=== PATIENT | female | born 1945 | race Caucasian/White ===

== ENCOUNTER 2019-03-05 14:03 | Emergency (ER) | payer MEDICARE ==
[~2019-03-05] VITALS: Ht 170.2 cm; Wt 117.8 kg
--- NOTE | 2019-03-05 14:30 | NUR ---
THIS IS A 73 YO FEMALE BIB [facility] FOR [facility] AFTER TRIPPING OVER CANE AND HITTING HEAD ON COUNTER. PER [facility], NO LOC, [facility] 15, A&OX4, 3 INCH LACERATION TO RIGHT ANTERIOR SKULL. DENIES USE OF BLOOD THINNERS, DENIES ANY MEDICAL HX. LACERATION BANDAGED BY [facility], BLEEDING CONTROLLED AT THIS TIME. PATIENT GCS 15, A&OX4 IN [facility] ED. PLACED ON 2L NC DUE TO SPO2 AT 88%, PATIENT STATES SHE HAS HAD A STUFFY NOSE AND COLD SYMTOMS THIS WEEK. SPO2 NOW AT 95%, CYCLE BP Q1HR. CALL LIGHT IN REACH, DENIES NEEDS AT THIS TIME.
[2019-03-05] MEDS ORDERED: DIPH,PERTUSS(ACELL),TET VAC/PF 0.5 ML IM-VACC ONE ×2 (14:51→15:00)
[2019-03-05] MEDS ORDERED: LIDOCAINE 1%-EPI 1:100K, 20ML ONE (14:52)
[2019-03-05] MEDS ORDERED: LIDOCAINE 1%-EPI 1:100K, 20ML SQ ONE (15:00)
--- NOTE | 2019-03-05 15:00 | NUR ---
INCREASE OF BLEEDING NOTED, WITH POOLING AROUND HEAD. WILLEM LOTT CALLED TO ROOM
--- NOTE | 2019-03-05 15:29 | NUR ---
LACERATION CLEANED AND IRRIGATED. WILLEM LOTT INJECTED LIDOCAINE WITH EPI TO CONTROL BLEEDING. PLACED 22 [address] ACROSS LACERATION. ED TECHS CONTINUING TO CLEANSE AND CLEAN LACERATION AND SURROUNDING TISSUE.
[2019-03-05] MEDS ORDERED: SODIUM CHLORIDE 0.9% 1,000ML IVBOLUS ONE (15:30)
--- NOTE | 2019-03-05 15:30 | NUR ---
LINENS AND BED CHANGED FOR PATIENT TO GO TO CT
[2019-03-05 15:59] LABS: BASOPHILS # (AUTO) 0.06 x10^3/uL (0-0.1); BASOPHILS % (AUTO) 1 % (0-1); EOSINOPHILS # (AUTO) 0.14 x10^3/uL (0-0.4); EOSINOPHILS % (AUTO) 1 % (1-7); LYMPHOCYTES # (AUTO) 2.16 x10^3/uL (1-3.4); LYMPHOCYTES % (AUTO) 20 % (22-44); MD NO; MEAN CORPUSCULAR HEMOGLOBIN 32.8 pg (27.0-34.8); MEAN CORPUSCULAR HGB CONC 33.3 g/dL (32.4-35.8); MEAN CORPUSCULAR VOLUME 98.5 fL (80-100); MONOCYTES # (AUTO) 0.65 x10^3/uL (0.2-0.8); MONOCYTES % (AUTO) 6 % (2-9); NEUTROPHILS # (AUTO) 7.87 x10^3/uL (1.8-6.8); NEUTROPHILS % (AUTO) 72 % (42-75); PLATELET COUNT 236 x10^3/uL (130-400); RED CELL DISTRIBUTION WIDTH 15.6 % (9.6-15.2)
--- NOTE | 2019-03-05 16:05 | NUR ---
PATIENT BACK FROM CT. RESTING ON YASEMIN TAYLOR, LENO, DENIES NEEDS AT THIS TIME.
[2019-03-05 16:09] LABS: ALBUMIN 3.9 g/dL (3.4-5.0); ANION GAP 8 mmol/L (5-15); CHLORIDE 101 mmol/L (98-107); CREATININE 0.93 mg/dL (0.55-1.02)
[2019-03-05 16:15] LABS: INTERNATIONAL NORMALIZED RATIO 1.02 (0.93-1.1); PROTHROMBIN TIME 10.7 Seconds (9.6-11.5)
[2019-03-05 16:40] VITALS: BP 146/72
--- NOTE | 2019-03-05 16:41 | NUR ---
PATIENT RESTING ON GURNEY, FAMILY IN ROOM, VSS, O2 TITRATED DOWN TO 1L, SPO2 AT 97%. NAD. CALL LIGHT IN REACH, DENIES NEEDS AT THIS TIME.
== END 2019-03-05 17:36 | disposition home or self-care (01) ==
LOC: ED 16:48
DX: S01.01XA Laceration without foreign body of scalp, initial encounter (principal); M25.511 Pain in right shoulder; R51 Headache; W01.0XXA Fall on same level from slipping, tripping and stumbling without subsequent striking against object, initial encounter; Y93.89 Activity, other specified; Y92.413 State road as the place of occurrence of the external cause; Y99.8 Other external cause status
CPT/HCPCS: 12004; 36415; 70450; 80048; 82040; 85025; 85610; 90471; 90715; 99284; J7030